=== PATIENT | female | born 1960 | race Two or more races ===

== ENCOUNTER 2022-01-12 18:44 | Emergency (ER) | payer OTHER ==
[~2022-01-12] VITALS: Ht 154.9 cm; Wt 67.6 kg
[2022-01-12] MEDS ORDERED: ENALAPRIL MALEA10 MG PO (19:01)
== END 2022-01-12 20:14 | disposition home or self-care (01) ==
LOC: ER 18:44
DX: S93.402A Sprain of unspecified ligament of left ankle, initial encounter (principal); I10 Essential (primary) hypertension